=== PATIENT | male | born 1985 | race Caucasian/White ===

== ENCOUNTER 2020-07-09 10:58 | Emergency (ER) | payer OTHER ==
[2020-07-09 11:10] VITALS: BP 118/75
--- NOTE | 2020-07-09 11:25 | ED Physician Documentation ---
PD HPI HEENT - Stated complaint Stated Complaint: SINUS CONGESTION - Chief complaint Chief Complaint: Heent - History obtained from History obtained from: Patient - Additional information Additional information: 34-year-old gentleman with remote history of C. difficile and recurrent sinusitis presents with 2 days of severe sinus pressure and drainage without fevers, cough, or sick contacts. Review of Systems Constitutional: reports: Myalgias. denies: Fever, Chills Ears: denies: Ear pain Nose: reports: Rhinorrhea / runny nose, Congestion, Sinus pressure / pain Throat: denies: Sore throat Cardiac: denies: Chest pain / pressure, Palpitations Respiratory: denies: Dyspnea, Cough PD PAST MEDICAL HISTORY - Present Medications Home Medications: Ambulatory Orders Medication Instructions Recorded Confirmed Amoxicillin 500 mg PO TID #30 capsule 07/09/20 Mometasone Furoate [Nasonex] 1 spray NS BID #1 spray.pump 07/09/20 - Allergies Allergies/Adverse Reactions: Allergies Allergy/AdvReac Type Severity Reaction Status Date / Time Sulfa (Sulfonamide Allergy Rash Verified 07/09/20 11:06 Antibiotics) PD ED PE NORMAL - Vitals Vital signs reviewed: Yes - General General: Alert and oriented X 3, No acute distress - HEENT HEENT: Other (Bilateral maxillary sinus tenderness) - Neck Neck: Supple, no meningeal sign, No bony TTP - Respiratory Respiratory: No respiratory distress, Clear bilaterally - Derm Derm: No rash - Neuro Neuro: Alert and oriented X 3, Normal speech Results - Vitals Vitals: Vital Signs - 24 hr 07/09/20 11:06 Temperature 36.4 C L Heart Rate 66 Respiratory 18 Rate Blood Pressure 118/75 O2 Saturation 98 Oxygen O2 Source Room air Departure - Departure Disposition: 01 Home, Self Care Clinical Impression: Sinusitis Qualifiers: Sinusitis location: maxillary Chronicity: acute Recurrence: recurrent Qualified Code(s): J01.01 - Acute recurrent maxillary sinusitis Condition: Good Record reviewed to determine appropriate education?: Yes Instructions: ED Sinusitis Abx Tx Prescriptions: Amoxicillin 500 mg PO TID #30 capsule Mometasone Furoate [Nasonex] 1 spray NS BID #1 spray.pump Comments: As discussed, I recommend, especially given your history of C. difficile, weight 2 to 3 days before starting or filling the antibiotics since there is a good chance this may be viral. Return as needed if worsening. We are performing a Covid test and will call you if positive, the fastest way to get a negative result though is to go to the hospital website at [email or web address], and go to the "my [email or web address]" tab and sign up for the patient portal. Forms: Activity restrictions
== END 2020-07-09 11:39 | disposition home or self-care (01) ==
LOC: ED 10:58
DX: J01.01 Acute recurrent maxillary sinusitis (principal); Z20.828 Contact with and (suspected) exposure to other viral communicable diseases
CPT/HCPCS: 99283; 99284

== ENCOUNTER 2021-11-20 08:59 | Outpatient (CLI) | payer OTHER ==
--- NOTE | 2021-11-21 09:53 | MRI Report ---
PROCEDURE: Shoulder LT W/O INDICATIONS: LEFT SHOULDER PAIN TECHNIQUE: Noncontrast oblique coronal T2 fast spin echo with fat saturation, oblique sagittal T1 spin echo and T2 fast spin echo with fat saturation, axial T1 spin echo and T2 fast spin echo with fat saturation t hrough the shoulder. COMPARISON: None. FINDINGS: Image quality: Excellent. Rotator cuff: There is partial-thickness tear of the distal supraspinatus tendons involving both burs al and articular surface. The infraspinous and subscapularis tendons are intact. There is mild infras pinatus and subscapularis tendinitis No rotator cuff muscle atrophy on sagittal images. Bones and bursae: No bone marrow contusions or fractures. Mild acromioclavicular joint degeneration. The acromion demonstrates conventional anatomy, without an os acromiale. No pathologic subacromial /subdeltoid bursal fluid is present. Capsule and soft tissues: In the absence of intra-articular contrast, the labrum and glenohumeral li gaments appear intact. The long head of the biceps tendon demonstrates normal location and morpholog y. The rotator interval appears normal, without fibrosis. The coracohumeral ligament is normal in t hickness. IMPRESSION: 1. Partial-thickness tear of the distal supraspinatus tendon. 2. Mild infraspinous and subscapular tendinitis. 3. Mild acromioclavicular joint degeneration. Reviewed by: Franchesca Love MD on 11/21/2021 9:51 AM PST Approved by: Franchesca Love MD on 11/21/2021 9:51 AM PST Station ID: [id number]
== END 2021-11-20 09:00 | disposition home or self-care (01) ==
LOC: DI 08:59
DX: M75.112 Incomplete rotator cuff tear or rupture of left shoulder, not specified as traumatic (principal); M19.012 Primary osteoarthritis, left shoulder

== ENCOUNTER 2021-11-25 10:09 | Emergency (ER) | payer OTHER ==
[2021-11-25 10:21] VITALS: BP 145/78
--- NOTE | 2021-11-25 12:15 | ED Physician Documentation ---
PD HPI URI - Stated complaint Stated Complaint: SINUS PAIN - Chief complaint Chief Complaint: Heent - History obtained from History obtained from: Patient - History of Present Illness Timing - onset: Yesterday (Became sick yesterday with R side sinus pain, R earache, popping in L ear and ST. No fevers. No cough, no sick contacts.) PD PAST MEDICAL HISTORY - Past Medical History Cardiovascular: None Respiratory: None Endocrine/Autoimmune: None - Past Surgical History Past Surgical History: No - Present Medications Home Medications: Ambulatory Orders Medication Instructions Recorded Confirmed Benzonatate [Tessalon] 100 mg PO TID PRN #20 cap 09/21/21 Fluticasone [Flonase] 1 sprays BOONE BID #16 gm 11/25/21 Guaifenesin/Pseudoephedrne HCl 1 each PO BID PRN #20 ea 11/25/21 [Mucinex D ER 600-60 mg Tablet] - Allergies Allergies/Adverse Reactions: Allergies Allergy/AdvReac Type Severity Reaction Status Date / Time Sulfa (Sulfonamide Allergy Rash Verified 11/25/21 10:21 Antibiotics) - Social History Does the pt smoke?: No Smoking Status: Never smoker Does the pt drink ETOH?: Yes - Immunizations Immunizations are current?: Yes - POLST Patient has POLST: No PD ED PE NORMAL - Vitals Vital signs reviewed: Yes - General General: Alert and oriented X 3, No acute distress - HEENT HEENT: Other (R viral conjunctivitis, serous otitis B. Mild red OP. ) - Neck Neck: Supple, no meningeal sign, No bony TTP, No adenopathy - Respiratory Respiratory: No respiratory distress, Clear bilaterally - Back Back: No CVA TTP, No spinal TTP - Derm Derm: Normal color, Warm and dry - Extremities Extremities: No edema, No calf tenderness / cord - Neuro Neuro: Alert and oriented X 3, Normal speech Results - Vitals Vitals: Vital Signs - 24 hr 11/25/21 10:17 Temperature 36.2 C L Heart Rate 78 Respiratory 16 Rate Blood Pressure 145/78 H O2 Saturation 98 Oxygen O2 Source Room air PD MEDICAL DECISION MAKING - ED course ED course: 36yo male with viral URI, poss adeno given prominent R side sx. No s/sx of bacterial infection. Departure - Departure Disposition: Home, Self Care Clinical Impression: Upper respiratory infection Qualifiers: URI type: unspecified viral URI Qualified Code(s): J06.9 - Acute upper respiratory infection, unspecified Condition: Good Record reviewed to determine appropriate education?: Yes Instructions: ED URI Viral Prescriptions: Fluticasone [Flonase] 1 sprays BOONE BID #16 gm Guaifenesin/Pseudoephedrne HCl [Mucinex D ER 600-60 mg Tablet] 1 each PO BID PRN #20 ea PRN Reason: congestion Comments: I sent prescriptions to [facility] at [address] [facility] [address] Return if worse. [place] if not better in 1 week.
== END 2021-11-25 12:20 | disposition home or self-care (01) ==
LOC: ED 10:09
DX: J06.9 Acute upper respiratory infection, unspecified (principal)
CPT/HCPCS: 99281; 99282

== ENCOUNTER 2021-12-05 16:31 | Emergency (ER) | payer OTHER ==
[2021-12-05 16:37] VITALS: BP 134/78
--- NOTE | 2021-12-05 16:50 | ED Physician Documentation ---
History of Present Illness - Stated complaint Stated Complaint: LT KNEE PX/INJ - Chief complaint Chief Complaint: Ext Problem - Additonal information Additional information: 36-year-old male presents emergency department for evaluation of 2 days acute left knee pain. Was playing basketball 2 days ago and felt a pop in his knee. Since then he has felt like the knee mark anthony when walking. He has several bruising on the lateral side of the knee. No history of similar in the past. Review of Systems Constitutional: denies: Fever, Chills Eyes: reports: Reviewed and negative Ears: reports: Reviewed and negative Throat: reports: Reviewed and negative Cardiac: reports: Reviewed and negative Respiratory: reports: Reviewed and negative GI: reports: Reviewed and negative : reports: Reviewed and negative Musculoskeletal: reports: Joint pain (left knee) Neurologic: reports: Reviewed and negative Psychiatric: reports: Reviewed and negative PD PAST MEDICAL HISTORY - Past Medical History Cardiovascular: None Respiratory: None Neuro: None Endocrine/Autoimmune: None GI: None : None HEENT: None Psych: None Musculoskeletal: None Derm: None - Past Surgical History Past Surgical History: No - Present Medications Home Medications: Ambulatory Orders Medication Instructions Recorded Confirmed Fluticasone [Flonase] 1 sprays BOONE BID #16 gm 11/25/21 Guaifenesin/Pseudoephedrne HCl 1 each PO BID PRN #20 ea 11/25/21 [Mucinex D ER 600-60 mg Tablet] - Allergies Allergies/Adverse Reactions: Allergies Allergy/AdvReac Type Severity Reaction Status Date / Time Sulfa (Sulfonamide Allergy Rash Verified 12/05/21 16:37 Antibiotics) - Social History Does the pt smoke?: No Smoking Status: Never smoker Does the pt drink ETOH?: Yes Does the pt have substance abuse?: No - Immunizations Immunizations are current?: Yes - POLST Patient has POLST: No PD ED PE EXPANDED - General General: Alert, No acute distress, Well developed/nourished - Extremities Extremities: Left knee (Laxity medially. Tenderness along the laterall joint line with superficial bruising. Antalgic gait unassisted. Normal flexion extension of the knee.) Results - Vitals Vitals: Vital Signs - 24 hr 12/05/21 16:33 Heart Rate 70 Respiratory 16 Rate Blood Pressure 134/78 H O2 Saturation 98 Oxygen O2 Source Room air - Rads (name of study) left knee Radiology: EMP read indepedently, EMP read contemporaneously (No acute fracture or dislocation.) PD MEDICAL DECISION MAKING - ED course Complexity details: reviewed results, re-evaluated patient, d/w patient ED course: 36-year-old male presents emergency department for evaluation of 2 days acute left knee pain. Occurred while playing basketball. He felt a pop on the lateral side of the knee and since then his knee mark anthony when walking. He does have some mild bruising there. On exam he has laxity laterally. X-ray was without acute focal findings however we discussed that the laxity as well as the buckling of the knee likely indicates toward ligaments or meniscus. Patient is placed in a knee immobilizer. Recommend close follow-up with [facility]. If symptoms not improved over 7 to 10 days may benefit from MRI or referral to orthopedics. Departure - Departure Disposition: 01 Home, Self Care Condition: Stable Record reviewed to determine appropriate education?: Yes Instructions: ED Sprain Knee Collateral Ligaments Comments: Po you are seen today for pain In your left knee. I suspect that you have a ligament injury which would explain the buckling of the knee as well as the pop you felt when playing basketball. Please wear the knee immobilizer when out of bed. You can ice the knee and take ibuprofen or Tylenol. If your symptoms are not much better over the next week you may benefit from referral to orthopedics and/or an outpatient MRI of the knee. The x-ray of your knee today does not show any worrisome findings.
--- NOTE | 2021-12-05 17:04 | XRAY Report ---
PROCEDURE: Knee 4 View LT INDICATIONS: Trauma TECHNIQUE: 4 views of the left knee(s) were acquired. COMPARISON: None. FINDINGS: Bones: No fractures or dislocations. No suspicious bony lesions. Soft tissues: No joint effusion. No suspicious soft tissue calcifications. IMPRESSION: No acute osseous abnormality. Reviewed by: Inocencio Enrique MD on 12/05/2021 4:03 PM AKVICKI Approved by: Inocencio Enrique MD on 12/05/2021 4:03 PM AKDT Station ID: [id number]
== END 2021-12-05 17:45 | disposition home or self-care (01) ==
LOC: ED 16:31
DX: M25.562 Pain in left knee (principal)
CPT/HCPCS: 99282; 99283

== ENCOUNTER 2022-02-18 06:00 | Outpatient (CLI) | payer OTHER ==
--- NOTE | 2022-02-18 13:38 | XRAY Report ---
PROCEDURE: Shoulder 3 View LT INDICATIONS: SHOULDER PAIN TECHNIQUE: 4 views of the shoulder were acquired. COMPARISON: None. FINDINGS: Bones: No fractures or dislocations. No suspicious bony lesions. Visualized ribs appear intact. A cromioclavicular and coracoclavicular intervals are maintained. Mild acromioclavicular degenerative c hange. Soft tissues: No suspicious soft tissue calcifications. IMPRESSION: Left shoulder without acute fracture or dislocation. Mild acromioclavicular osteoarthros is.. Reviewed by: Oswaldo Miles MD on 02/18/2022 1:36 PM PDT Approved by: Oswaldo Miles MD on 02/18/2022 1:36 PM PDT Station ID: [id number]
== END 2022-02-18 23:59 | disposition home or self-care (01) ==
LOC: DI.WOS 06:00
PROVIDERS: ATTEND Physician Assistant
DX: M67.814 Other specified disorders of tendon, left shoulder (principal); M19.012 Primary osteoarthritis, left shoulder

== ENCOUNTER 2022-08-11 08:56 | Emergency (ER) | payer OTHER ==
[2022-08-11 09:04] VITALS: BP 128/80
== END 2022-08-11 10:33 | disposition left against medical advice (07) ==
LOC: ED 08:56
DX: Z53.21 Procedure and treatment not carried out due to patient leaving prior to being seen by health care provider (principal)

== ENCOUNTER 2023-02-18 21:13 | Emergency (ER) | payer OTHER ==
[2023-02-18 21:31] VITALS: BP 125/77
[2023-02-18] MEDS ORDERED: BUFFERED LIDOCAINE 10 ML SYRINGE SUBQ STA (21:31)
[2023-02-18] MEDS ORDERED: TETANUS/DIPHTHERIA TOXOID 0.5 ML SYRINGE IM ONE (21:31)
--- NOTE | 2023-02-18 21:39 | ED Physician Documentation ---
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 He is up-to-date on tetanus. He was working home just prior to arrival and hit his left ring finger with a hammer. Pain is mild. He declines an x-ray after discussion.) PD PAST MEDICAL HISTORY - Past Medical History Cardiovascular: None Respiratory: None Neuro: None Endocrine/Autoimmune: None GI: None : None HEENT: None Psych: None Musculoskeletal: None Derm: None - Past Surgical History Past Surgical History: No - Present Medications Home Medications: Ambulatory Orders Medication Instructions Recorded Confirmed No Known Home Medications 08/11/22 08/11/22 - Allergies Allergies/Adverse Reactions: Allergies Allergy/AdvReac Type Severity Reaction Status Date / Time Sulfa (Sulfonamide Allergy Rash Verified 02/18/23 21:29 Antibiotics) - Social History Does the pt smoke?: No Smoking Status: Never smoker Does the pt drink ETOH?: Yes Does the pt have substance abuse?: No - Immunizations Immunizations are current?: Yes - POLST Patient has POLST: No PD ED PE NORMAL - Vitals Vital signs reviewed: Yes - General General: Alert and oriented X 3, No acute distress - Extremities Extremities: Other (There is a circular laceration just at the tip with a flap laceration measuring about 1 cm. No neurovascular compromise.) - Neuro Neuro: Alert and oriented X 3, Normal speech Results - Vitals Vitals: Vital Signs - 24 hr 02/18/23 21:26 Temperature 36.3 C L Heart Rate 80 Respiratory 16 Rate Blood Pressure 125/77 O2 Saturation 99 Oxygen O2 Source Room air Procedures - Laceration (location) L 4th finger Length in cm: 1 Wound type: Curved, Irregular, Flap Neurovascular status: Sensory intact, Motor intact Tendon involvement: Tendon intact Anesthesia: Lidocaine 1%, With bicarb Wound preparation: Irrigated copiously NS Skin layer closure: Nylon, Interrupted, Size #-0 - enter number (5-0), Sutures - enter # (2) Other: Tetanus UTD Departure - Departure Disposition: 01 Home, Self Care Clinical Impression: Laceration of left ring finger Qualifiers: Encounter type: initial encounter Damage to nail status: without damage Foreign body presence: without foreign body Qualified Code(s): S64.215A - Laceration without foreign body of left ring finger without damage to nail, initial encounter Condition: Good Record reviewed to determine appropriate education?: Yes Instructions: ED Laceration Hand Comments: Come back for any signs of infection which would include: Redness, swelling, drainage, increased pain, or fevers. You can wash it soap and water. Keep it covered and moist with bacitracin ointment which is available over the counter; avoid neosporin. Follow-up with your physician in about 14 days for suture removal.
== END 2023-02-18 22:22 | disposition home or self-care (01) ==
LOC: ED 21:13
DX: S61.215A Laceration without foreign body of left ring finger without damage to nail, initial encounter (principal); W22.8XXA Striking against or struck by other objects, initial encounter
CPT/HCPCS: 12001; 99283

== ENCOUNTER 2023-10-11 20:38 | Outpatient (CLI) | payer OTHER | END 2023-10-11 20:39 | disposition home or self-care (01) | LOC: SC 20:38 | PROVIDERS: ATTEND Nurse Practitioner Family | DX: R06.83 Snoring (principal); G47.8 Other sleep disorders; R06.81 Apnea, not elsewhere classified; R53.83 Other fatigue; E66.9 Obesity, unspecified; Z68.30 Body mass index [BMI] 30.0-30.9, adult | CPT/HCPCS: 95810 ==

== ENCOUNTER 2023-10-16 09:11 | Outpatient (CLI) | payer OTHER ==
--- NOTE | 2023-10-16 09:37 | Sleep Patient Instructions ---
Sleep Center Visit Summary - Patient Visit Information Reason for Visit: Sleep study followup - Patient Instructions Instructions Attached: Sleep Study Home Monitor Additional Instructions: You will be completing a home sleep study (HST). You will follow-up in the sleep care office after the sleep study is completed to hear the results and talk about therapy, if needed. You will be called by our office staff to schedule this appointment, but you may contact us with any questions. - Clinic Information Contact: [facility] [address] [place] [address] [email or web address] T: [phone]
--- NOTE | 2023-10-16 09:40 | SLEEP CARE CONSULTATION ---
Information from patient questionnaire entered by Joy Vides. I have reviewed and concur with the information entered by Joy Vides. This document represents the service I personally performed and the decisions made by , Margret Copeland ARNP. History of Present Illness Service Date and Time: 10/16/2023 0911 Initial [place] Sleepiness Scale score: 9 (10/07/23) Current [place] Sleepiness Scale score: 12 (10/16/23) Additional HPI information: RUPAL LIND returns for follow up and results of the recently performed polysomnography. The patient was informed of the following findings: No significant sleep disordered breathing with an average AHI of 3 and sara oxygen saturation of 90%. I explained the pathophysiology behind obstructive sleep apnea. Patient does not have sleep apnea and was advised how weight gain could increase the risk of developing sleep apnea in the future. I strongly encouraged the patient to lose weight. Patient does not have significant sleep disordered breathing but has elevated AHI in supine position so advised positional therapy. Methods to achieve positional management therapy were discussed; such as, positioning with pillows, wearing a T-shirt with tennis balls sewn into the back or commercially available products. Patient has moderate snoring. Snoring can be reduced by weight loss. Weight loss is best achieved with diet consult. Patient instructed to contact PCP for referral. Snoring can also be treated with an oral appliance from a dentist. Advised to check insurance coverage. In addition, an ENT evaluation can be do to see if other treatment is indicated. Patient counseled not drink alcohol less than 4 hours before bedtime as it can increase snoring and apnea. Patient was cautioned about risks of drowsy driving until sleepiness symptoms resolve. Patient denies drowsy driving. Sleep Study - Results Type of Sleep Study: Polysomnography (COMPLETED 10/11/2023) Prior sleep studies: No Polysomnography/Home Sleep Study results: IMPRESSION: The quality of the study is good. The patient had normal sleep efficiency. The sleep architecture was abnormal for sleep fragmentation and reduced amount of time spent in slow wave sleep (N3). Respiratory monitoring showed no significant sleep disordered breathing (AHI = 3.0) or hypoxia (sara oxygen saturation of 90%). The few respiratory events occurred almost exclusively during supine sleep (supine AHI = 18.4; non-supine = 1.17). Snore was moderate in intensity. There was no significant periodic leg movement of sleep. Cardiac rhythm was normal sinus rhythm without significant arrhythmia. No abnormal behavior (parasomnia) observed during the night. Allergies and Home Medications Known drug allergies: Yes (sulfa) Drug allergies reviewed: Yes Home medication list reviewed: Yes (Sertraline) Allergy and home medication list: Allergies Sulfa (Sulfonamide Antibiotics) Allergy (Verified 10/14/23 09:04) Rash Review of Systems Review of systems same as previous: Yes (NO CHANGE) Physical Exam Vital signs obtained and entered by: JOY Caputo MA Blood Pressure: 130/76 (LEFT ARM) Cuff size: regular Heart Rate: 72 O2 Saturation: 98 Height: 5 ft 10 in Weight: 212 lb 3.2 oz Body Mass Index: 30.4 BMI Classification: Obese Impression and Plan 1. Suspected Obstructive Sleep Apnea-Hypopnea Syndrome, as suggested by a history of loud and irregular snoring, observed cessation of breath while asleep, gasping or choking in sleep, frequent awakening during the night, unrefreshed sleep, cognitive impairment, and excessive daytime sleepiness. He completed a study in the lab which showed moderate obstructions with supine AHI at 18.4 when sleeping supine but his average was at 3.0. He states he has a a lot of shoulder pain which causes him to sleep more on his back at home. His is telling him that he is constantly stopping breathing and gasping through the night. He continues to be very fatigued during the daytime and not refreshed after sleeping. I recommend proceeding to polysomnography done at home to confirm the diagnosis and to assess severity. I obtained agreement to proceed. The pathophysiology of obstructive sleep apnea-hypopnea syndrome was discussed with the patient and health risks of cardiovascular and cerebrovascular disease if not treated. Risks of drowsy driving discussed in detail and patient advised to avoid long distance driving and to candy puller at the first sign of drowsiness. Patient agreed to plan. n option. 2. Obesity, unspecified. Currently patients BMI is 30.4. Obesity increases the risk of apnea, CPAP pressure requirements and overall health risks especially cardiovascular and diabetes. Thus patient is advised to lose weight. * Schedule polysomnography/HST * Avoid long distance driving or driving when feeling sleepy. * Avoid alcohol, sedative and muscle relaxant around bedtime. * Attempt to lose weight. * Review instructions provided by trained office staff on how to prepare for the sleep study. * Return for follow-up after sleep study completed. Counseling Topics: Sleeping position, Weight loss health impact Plan: HST Visit Type: In Office Time Spent with Patient (minutes): 20 Provider Statement: I spent 100% of the Face to Face Visit with the patient with greater than 50% spent counseling the patient and coordination of care.
[2023-10-16 09:49] VITALS: BP 130/76; O2SAT 98
== END 2023-10-16 09:12 | disposition home or self-care (01) ==
LOC: SC 09:11
PROVIDERS: ATTEND Nurse Practitioner Family
DX: R06.83 Snoring (principal); R06.81 Apnea, not elsewhere classified; G47.8 Other sleep disorders; R41.89 Other symptoms and signs involving cognitive functions and awareness; G47.10 Hypersomnia, unspecified; E66.9 Obesity, unspecified; Z68.30 Body mass index [BMI] 30.0-30.9, adult
CPT/HCPCS: 99212; 99213

== ENCOUNTER 2023-10-23 10:23 | Outpatient (CLI) | payer OTHER | END 2023-10-23 10:24 | disposition home or self-care (01) | LOC: SC 10:23 | PROVIDERS: ATTEND Nurse Practitioner Family | DX: G47.33 Obstructive sleep apnea (adult) (pediatric) (principal); R09.02 Hypoxemia | CPT/HCPCS: 95806 ==

== ENCOUNTER 2023-11-03 09:35 | Outpatient (CLI) | payer OTHER ==
--- NOTE | 2023-11-03 10:11 | Sleep Patient Instructions ---
Sleep Center Visit Summary - Patient Visit Information Reason for Visit: Sleep study follow-up - Patient Instructions Instructions Attached: CPAP Additional Instructions: You are being started on CPAP therapy with pressure setting at 5-20 cmH2O. You will need to call the sleep care office to set up your follow up once you have your APAP machine and we will schedule a visit to check compliance and response to therapy at that time. You may call the office with any concerns about pressure feeling too low or too much for adjustment, if needed. You should contact DME supplier for any questions or concerns about mask or equipment. Please call office to schedule a follow up appointment in the sleep care office one month after obtaining new device. - Clinic Information Contact: [facility] [address] [place] [address] [email or web address] T: [phone]
--- NOTE | 2023-11-03 10:16 | SLEEP CARE CONSULTATION ---
Information from patient questionnaire entered by Joy Vides. I have reviewed and concur with the information entered by Joy Vides. This document represents the service I personally performed and the decisions made by me, Margret Copeland ARNP. History of Present Illness Service Date and Time: 11/03/2023 09 Initial [place] Sleepiness Scale score: 9 (10/07/23) Current [place] Sleepiness Scale score: 9 Additional HPI information: RUPAL LIND returns for follow up and results of the recently performed home sleep study. The sleep study showed severe obstructive sleep apnea with an average AHI of 37.8 and sara oxygen saturation of 85%. I explained the pathophysiology behind obstructive sleep apnea. We then spent quite a bit of time discussing different treatment options. For mild obstructive sleep apnea, surgery and oral appliance are alternatives to nasal CPAP therapy but in moderate or severe cases, nasal CPAP is the most effective and reliable treatment. I reviewed the impact of weight changes on sleep apnea and strongly recommended losing weight. After some discussion, the patient opted to go with the nasal CPAP therapy. Nasal autoCPAP set at 5-20 cmH20 will be ordered with rationale explained. A manual titration study will be ordered if unable to find optimal pressure with office adjustments. I explained how CPAP machine works and what to expect when using the machine. Using CPAP every night in order to get used to it was emphasized. Patient advised to put CPAP mask on before getting into bed so as not to fall asleep without CPAP. To assist acclimation to CPAP use, it could also be used for a short time during day while reading or watching TV. The patient was instructed to call the CPAP supplier to discuss any mechanical problem that may occur. If the mask given is uncomfortable or is difficult to keep on through the night even with adjustment, contact the CPAP supplier as many will replace with another mask style if notified before 30 days. If snoring or perceives is not getting enough air or too much air from the machine, notify this office. Patient counseled not drink alcohol less than 4 hours before bedtime as it can increase snoring and apnea. Patient was cautioned about risks of drowsy driving until sleepiness symptoms resolve. Patient denies drowsy driving. Sleep Study - Results Type of Sleep Study: Home sleep study (COMPLETED 10/23/23) Prior sleep studies: No Polysomnography/Home Sleep Study results: Physician Impression: The quality of the study is good. The length of the study is adequate (> 240 minutes). Please also see the tabulated and graphic data. 1. Obstructive Sleep Apnea-Hypopnea (ICD-10 G47.33), severe, with an AHI of 37.8 /hr and sara SaO2 of 85%. During the study, the patient had 210 apneas (210 obstructive, 0 central, 0 mixed) and 16 hypopneas. The longest episode lasted 80.0 seconds. The respiratory events occurred independently of sleep stage and body position (supine AHI was 37.7 and non-supine, 120.00). 2. Hypoxemia (ICD-10 R09.02), mild, with the lowest oxygen saturation of 85 % and 3.4 minutes with SaO2 under 90%. Baseline oxygen saturation was normal (Average oxygen saturation was 95%). Allergies and Home Medications Known drug allergies: Yes (as listed) Drug allergies reviewed: Yes Home medication list reviewed: Yes (no changes) Allergy and home medication list: Allergies Sulfa (Sulfonamide Antibiotics) Allergy Rash Review of Systems Review of systems same as previous: Yes (no changes) Physical Exam Vital signs obtained and entered by: MARGRET WAY-Harshal Blood Pressure: 134/80 Cuff size: regular (left) Heart Rate: 63 O2 Saturation: 100 Height: 5 ft 10 in Weight: 208 lb 9.6 oz Body Mass Index: 29.9 BMI Classification: Overweight Impression and Plan 1. Obstructive Sleep Apnea-Hypopnea Syndrome, severe, with lowest oxygen saturation of 85%. Obviously this is the cause of the patients symptoms of unrefreshed sleep, and excessive daytime sleepiness. Positive pressure therapy could benefit anxiety. As mentioned above, the patient will be started on nasal autoCPAP therapy with pressure set at 5-20 cmH2O. A manual titration study will be completed if unable to find optimal treatment pressure with office adjustments. Compliance guidelines also reviewed. A copy of compliance guidelines will be given for reference at check out. 2. Hypoxemia, mild, with a sara oxygen saturation of 85% and 3.4 minutes spent under 90%. The baseline oxygen saturation was normal with an average oxygen saturation of 95%. 2. Overweight, unspecified. Currently patients BMI is 29.9. Obesity increases the risk of apnea, CPAP pressure requirements and overall health risks especially cardiovascular and diabetes. Thus patient is advised to lose weight. * Nasal auto CPAP therapy, pressure at 5-20 cm H2O. * Attempt to lose weight. * Avoid alcohol consumption near bedtime. * Avoid supine sleep until using CPAP. * The patient is again cautioned about driving until sleepiness completely resolves. * Return one month after CPAP obtained. I will assess response to therapy and compliance at that time. Counseling Topics: Weight loss health impact Prescriptions: Auto CPAP Follow up with Sleep Care in: other (one month after obtaining new CPAP) Visit Type: In Office Time Spent with Patient (minutes): 22 Provider Statement: I spent 100% of the Face to Face Visit with the patient with greater than 50% spent counseling the patient and coordination of care.
[2023-11-03 10:18] VITALS: BP 134/80; O2SAT 100
== END 2023-11-03 09:36 | disposition home or self-care (01) ==
LOC: SC 09:35
PROVIDERS: ATTEND Nurse Practitioner Family
DX: G47.33 Obstructive sleep apnea (adult) (pediatric) (principal); R09.02 Hypoxemia; E66.3 Overweight; Z68.29 Body mass index [BMI] 29.0-29.9, adult
CPT/HCPCS: 99212; 99213

== ENCOUNTER 2024-04-29 08:02 | Emergency (ER) | payer OTHER ==
--- NOTE | 2024-04-29 08:26 | ED Physician Documentation ---
PD HPI UPPER EXT INJURY - Stated complaint Stated Complaint: RT MIDDLE & PINKY INJ - Chief complaint Chief Complaint: Trauma Ext - History obtained from History obtained from: Patient - History of Present Illness Location: Right, Finger Type of injury: Blunt / blow (garage door spring snapped and the buckle of it struck his fingers. Small abrasion. Pain with ROM.) Where injury occurred: Home Timing - onset: Today PD PAST MEDICAL HISTORY - Past Medical History Past Medical History: Yes Cardiovascular: None Respiratory: None Neuro: None Endocrine/Autoimmune: None GI: None : None HEENT: None Psych: None Musculoskeletal: None Derm: None - Past Surgical History Past Surgical History: No - Present Medications Home Medications: Ambulatory Orders Medication Instructions Recorded Confirmed No Known Home Medications 04/29/24 04/29/24 - Allergies Allergies/Adverse Reactions: Allergies Allergy/AdvReac Type Severity Reaction Status Date / Time Sulfa (Sulfonamide Allergy Rash Verified 04/29/24 08:17 Antibiotics) - Social History Does the pt smoke?: No Smoking Status: Never smoker Does the pt drink ETOH?: Yes Does the pt have substance abuse?: No - Immunizations Immunizations are current?: Yes - POLST Patient has POLST: No PD ED PE NORMAL - Vitals Vital signs reviewed: Yes - General General: Alert and oriented X 3, No acute distress (hurts for finger movement.), Well developed/nourished - Derm Derm: Normal color, Warm and dry - Extremities Extremities: Other (right middle finger mainly hurting at mid to end of finger. little finger somewhat sore on ROM. small abrasion dorsum middle finger. ) - Neuro Neuro: No motor deficit, No sensory deficit, Other Results - Vitals Vitals: Oxygen O2 Source Room air PD Medical Decision Making - ED course Complexity details: reviewed results (no fractures. ), considered differential (injured fingers from garage spring snappping and sriking fingers. Swllling and tender but no fractures. small abrasion with just bandaid.) Departure - Departure Disposition: 01 Home, Self Care Clinical Impression: Finger sprain, Finger abrasion Condition: Stable Record reviewed to determine appropriate education?: Yes Instructions: ED Sprain Finger Follow-Up: RENAE READ NP [Primary Care Provider] - Comments: No fractures on your x-ray. Your tendons and joint function seem to be still intact. Obviously is going to be sore from the impact and likely for a few days. Splinting initially ice and elevate often. Wound care for the abrasion with just cleaning soap and water and some ointment and Band-Aids. Recheck of infection. I would anticipate the fingers improving over the next several days and back to normal within 3 to 5 days if not sooner. Tylenol or ibuprofen as needed for pains. Forms: PCP List Discharge Date/Time: 04/29/24 09:40
[2024-04-29 08:44] VITALS: BP 117/76; O2SAT 99
[2024-04-29] MEDS: IBUPROFEN 800 MG TABLET PO STA (08:45)
[2024-04-29] MEDS: ACETAMINOPHEN 500 MG TABLET PO STA (08:45)
--- NOTE | 2024-04-29 09:13 | XRAY Report ---
PROCEDURE: Finger(s) RT INDICATIONS: struck in fingers by garage door spring TECHNIQUE: AP hand, 2 views of the third finger(s) acquired. COMPARISON: None. FINDINGS: Bones: No fractures or dislocations. No suspicious bony lesions. Soft tissues: No suspicious soft tissue calcifications or masses. IMPRESSION: No acute bony abnormality. Reviewed by: Juan Lamb MD on 04/29/2024 9:12 AM PDT Approved by: Juan Lamb MD on 04/29/2024 9:12 AM PDT Station ID: [id number]
[2024-04-29] MEDS: BACITRACIN ZINC OINT 1 PACKET TOP STA (09:33)
== END 2024-04-29 09:40 | disposition home or self-care (01) ==
LOC: ED 08:02
DX: S63.612A Unspecified sprain of right middle finger, initial encounter (principal); S63.616A Unspecified sprain of right little finger, initial encounter; S60.412A Abrasion of right middle finger, initial encounter; W22.8XXA Striking against or struck by other objects, initial encounter; Y92.008 Other place in unspecified non-institutional (private) residence as the place of occurrence of the external cause
CPT/HCPCS: 73140; 99283; A9270

== ENCOUNTER 2024-06-16 11:00 | Outpatient (CLI) | payer OTHER ==
--- NOTE | 2024-06-16 11:47 | Sleep Patient Instructions ---
Sleep Center Visit Summary - Patient Visit Information Reason for Visit: First compliance with PAP therapy - Patient Instructions Additional Instructions: You were here for follow up of CPAP therapy. You will be continued on CPAP therapy with pressure at 6-9 cmH2O. Please let us know if the pressure change is uncomfortable and we can make further adjustments of the pressure. You should follow up with sleep care in 1-2 months. You may contact us sooner for any questions or concerns. - Clinic Information Contact: [facility] [address] [place] [address] [email or web address] T: [phone]
--- NOTE | 2024-06-16 11:52 | SLEEP CARE CONSULTATION ---
Information from patient questionnaire entered by Sierra Patel. I have reviewed and concur with the information entered by Sierra Patel. This document represents the service I personally performed and the decisions made by , Margret Copeland ARNP. History of Present Illness Service Date and Time: 06/16/2024 1100 Previous diagnosis: Severe, Obstructive Sleep Apnea-Hypopnea Syndrome AHI: 37.8 Reason for follow up: first compliance (Set up 11/23 [facility]) Equipment type: CPAP (Airsense 11, s/u 11/2023) Equipment obtained from: Other ([facility]) Mask style: Nasal pillows Mask brand: Respironics (Dreamwear) Backup mask available: No Last cushion change: 1.5 months Prior sleep studies: No Type of Sleep Study: Home sleep study (COMPLETED 10/23/23) HPI additional information: RUPAL LIND was diagnosed to have severe, AHI 37.8, obstructive sleep apnea- hypopnea syndrome and returned today for CPAP therapy first compliance follow- up. Sleep Study - Results Type of Sleep Study: Home sleep study (COMPLETED 10/23/23) Prior sleep studies: No CPAP Compliance Data - Data Reviewed with Patient Average duration of nightly device use: 2 h 25 mins Compliance rate %: 3 (42/180 days used) Current pressure setting (cmH2O): 5 - 20 (median 6.7, avg 8.7, max 9.2) Average residual AHI: 3.8 Central apnea: 2.3 Obstructive apnea: 0.7 Hypopnea: 0.6 Average large leak: 2.4 L/min Subjective Missed days of use due to: reports: other (condensation in mask) Patient concerns: reports: condensation in mask/hose (A lot of water in hose), other (Choking). denies: aerophagia, mask discomfort, air blowing in eyes, mask leak noise, nasal congestion, dry mouth, nose, throat, epistaxis Observed to snore while using device: No Current pressure setting perceived as: comfortable On therapy, patient: reports: other (not used enough to get benefit yet). denies: drowsiness while driving Initial [place] Sleepiness Scale score: 9 (10/07/23) Current [place] Sleepiness Scale score: 13 (06/16/24) Allergies and Home Medications Known drug allergies: Yes (Sulfa) Drug allergies reviewed: Yes Home medication list reviewed: Yes (no changes) Review of Systems Review of systems same as previous: Yes (no changes) Physical Exam Vital signs obtained and entered by: Margret Roman NP Blood Pressure: 121/73 Cuff size: long (rigth arm) Heart Rate: 74 O2 Saturation: 97 Height: 5 ft 10 in Weight: 199 lb 3.2 oz Body Mass Index: 28.5 BMI Classification: Overweight Impression and Plan 1. Obstructive Sleep Apnea-Hypopnea Syndrome, severe, with poor treatment compliance and good apnea control. He has had some significant improvement of sleep apnea when he is able to use his CPAP. However, he has not been able to use a very long due to big issue with condensation causing him to wake up choking on water. He did call his DME who had him put his machine lower but this seemed to make the issue worse. I showed him how to adjust his humidity on the machine and adjusted it to 3 from the 5 it was on to help reduce the condensation. I also discussed with him that heated hose and reducing the humidity further if needed. He voiced understanding. The patients pressure will be changed to autoCPAP 6-9 cmH20 to reflect pressure being used. Patient advised to contact me if pressure change is uncomfortable so that it can be adjusted. Goals for apnea control discussed. Patient's apnea severity and rationale for treatment to reduce apnea, improve sleep quality and reduce cardiovascular and cerebrovascular events was reviewed. I also reviewed the benefit of consistent device use of CPAP for anxiety. 2. Overweight, unspecified. Currently patients BMI is 28.5. Obesity increases the risk of apnea, CPAP pressure requirements and overall health risks especially cardiovascular and diabetes. Thus patient is advised to lose weight. * Change auto CPAP pressure to 6-9 cmH2O * Notify me if snoring with mask or feeling that the pressure is too much or too little * Attempt to lose weight * Call this office if any problems using CPAP * Return for follow up in 1-2 months, or sooner if concerns arise Adjust device pressure to (cmH2O): 6-9 Counseling Topics: Weight loss health impact Follow up with Sleep Care in: 1-2 months Visit Type: In Office Time Spent with Patient (minutes): 17 Provider Statement: I spent 100% of the Face to Face Visit with the patient with greater than 50% spent counseling the patient and coordination of care.
[2024-06-16 12:03] VITALS: BP 121/73; O2SAT 97
== END 2024-06-16 11:01 | disposition home or self-care (01) ==
LOC: SC 11:00
PROVIDERS: ATTEND Nurse Practitioner Family
DX: G47.33 Obstructive sleep apnea (adult) (pediatric) (principal); E66.3 Overweight; Z68.28 Body mass index [BMI] 28.0-28.9, adult
CPT/HCPCS: 99212